=== PATIENT | female | born 1965 ===

== ENCOUNTER 2016-06-11 07:21 | Day surgery (SDC) | payer MEDICARE, BC ==
[2016-01-02 12:29] VITALS: BMI 28.5
[2016-06-11] MEDS ORDERED: Succinylcholine 200 mg/10 ml Inj IV ONE (07:37)
[2016-06-11] MEDS ORDERED: Lidocaine Hydrochloride 5 ML INJ ONE (07:37)
[2016-06-11] MEDS ORDERED: Midazolam 2 MG/2 ML VIAL ONE (07:37)
[2016-06-11] MEDS ORDERED: Neostigmine Methylsulfate 2 MG/2 ML ML IV ONE (07:37)
[2016-06-11] MEDS ORDERED: Propofol 10 mg/ml Inj (20 ML) ONE (07:37)
[2016-06-11] MEDS ORDERED: Rocuronium 10 mg/ml (5 ml) ONE (07:38)
[2016-06-11] MEDS ORDERED: Lidocaine 4% (Laryng-O-Jet) Kit MM ONE (07:50)
[2016-06-11] MEDS ORDERED: Ropivacaine 0.5% 30ML IV ONE (07:51)
[2016-06-11] MEDS ORDERED: Lidocaine 2% w Epi 1:100,000 Inj IJ ONE (08:43)
[2016-06-11] MEDS ORDERED: Sevoflurane - Inhalation Anesthetic Liq (250 ml) ONE (09:00)
[2016-06-11 09:09] LABS: BLOOD UREA NITROGEN 14 mg/dl (7-17); CALCIUM 9.6 mg/dL (8.4-10.2); CARBON DIOXIDE 26 mmol/L (22-30); CHLORIDE 105 mmol/L (98-107); GFR AFRICAN-AMERICAN > 60; GLUCOSE,RANDOM 108 mg/dL (65-105); SODIUM 148 mmol/l (132-148)
[2016-06-11 09:18] LABS: PARTIAL THROMBOPLASTIN TIME 28.7 SECONDS (23.3-32.5)
[2016-06-11] MEDS ORDERED: Lidocaine 2% w Epi 1:200,000 Pf Inj IJ ONE (10:08)
[2016-06-11] MEDS ORDERED: Lactated Ringer's 1,000 ML IV SCH (11:45)
[2016-06-11] MEDS ORDERED: Trimethobenzamide 200 mg/2 mL Inj IM PRN (11:46)
[2016-06-11] MEDS ORDERED: Oxycodone/Acetaminophen 5/325 mg Tab PO PRN (11:47)
--- NOTE | 2016-06-11 11:53 | PCM.ANESB1 ---
Interscalene Block - Brachial Plexus Date of Procedure: 06/11/16 Anesthesiologist: Dr. Hawthorne Pre-Procedure Diagnosis: S/P right shoulder arthroscopy Post-Procedure Diagnosis: S/P right shoulder arthroscopy Procedure Performed: Interscalene Block of Brachial Plexus Right - Procedure Interscalene Block of Brachial Plexus: This procedure was explained to the patient that it is for post-operative pain management. Consent was obtained after a thorough discussion with the patient regarding the benefits and possible complications of local anesthetic block of the Brachial Plexus at the Interscalene area. The patient was brought to the Operating Room and standard monitors were applied. Time out was held with the circulating nurse to confirm the correct surgery and appropriate block. After the surgery while the patient still under general anesthesia, the patient's head was gently rotated away from the right operative shoulder and the anterior scalene groove was carefully palpated. The ultrasound transducer was then applied to the skin in the transverse plane and the brachial plexus was visualized lateral to the carotid artery and in between the anterior and middle scalene muscles. After identification,the anterior lateral portion of the neck was prepped with Chloraprep solution. At this point, a # 22 gauge Stimuplex 2 inches insulated needle was inserted into the interscalene groove and directed in a caudal and midline direction. The needle was inserted lateral to the ultrasound transducer in-plane towards the brachial plexus in a [id number] direction. Needle advancement was performed carefully under direct ultrasound visualization. Nerve stimulator was used and twitched of the affected extremity including the hand brachialis muscles, biceps and the deltoid was obtained at a current of 0.3MA. After repeated negative aspiration, 5cc of 0.5%, ropivacaiane was injected and this was followed with 15cc of 0.5%, ropivacaiane. Under ultrasound guidance the local anesthetics were observed surrounding the roots of the brachial plexus. The needle was removed intact and sterile dressing was applied. The patient had stable vital signs, anesthesia discontinued and patient extubated. She was in no apparent distress. The patient tolerated the interscalene block of the bracheal plexus well with stable vital signs and was transported to PACU.
[2016-06-11 13:50] VITALS: BP 116/75; PULSE 88; RESP 18; TEMP 97.9; O2SAT 96
--- NOTE | 2016-06-13 11:23 | PCM.SURG1 ---
Surgeon's Initial Post Op Note - Surgeon's Notes Surgeon: Dr. Ron Arteaga Tin Tie Machine Operator Automatic: Yoselyn Jones PA-C Type of Anesthesia: General Endo Anesthesia Administered By: Dr. Hawthorne Pre-Operative Diagnosis: Right Shoulder Impingement,Rotator Cuff Tear,Synovitis, Bicep Tenosynovitis Operative Findings: see operative note Post-Operative Diagnosis: same Operation Performed: Right Shoulder Arthroscopy,Complete Synovectomy, Subacromial Decompression and Acromioplasty,Subpectoral Bicep's Tenodesis Specimen/Specimens Removed: none Estimated Blood Loss: EBL {In ML}: 1 Drains Used: No Drains Post-Op Condition: Good Date of Surgery/Procedure: 06/11/16 Time of Surgery/Procedure: 09:00
--- NOTE | 2016-06-13 11:27 | CP.PCM.DIS ---
Provider - Provider Attending physician: Ron Arteaga MD Primary care physician: Fidel Tesfaye MD Time Spent in preparation of Discharge (in minutes): 30 Diagnosis - Discharge Diagnosis (1) Right rotator cuff tear Status: Acute Priority: Medium Hospital Course - Lab Results Lab Results: Most Recent Lab Values PT 10.4 SECONDS (9.6-11.2) 06/11/16 08:25 INR 1.00 (0.92-1.08) 06/11/16 08:25 APTT 28.7 SECONDS (23.3-32.5) 06/11/16 08:25 Sodium 148 mmol/l (132-148) 06/11/16 08:25 Potassium 4.0 MMOL/L (3.6-5.0) 06/11/16 08:25 Chloride 105 mmol/L (98-107) 06/11/16 08:25 Carbon Dioxide 26 mmol/L (22-30) 06/11/16 08:25 Anion Gap 21 (10-20) H 06/11/16 08:25 BUN 14 mg/dl (7-17) 06/11/16 08:25 Creatinine 0.8 mg/dL (0.7-1.2) 06/11/16 08:25 Est GFR ( Amer) > 60 06/11/16 08:25 Est GFR (Non-Af Amer) > 60 06/11/16 08:25 Random Glucose 108 mg/dL (65-105) H 06/11/16 08:25 Calcium 9.6 mg/dL (8.4-10.2) 06/11/16 08:25 Discharge Plan - Follow Up Plan Condition: GOOD Disposition: HOME/ ROUTINE Patient education suggested?: Yes Additional Instructions: Pt s/p right shoulder arthroscopy,small supraspinatos cuff tear seen,complete synovectomy done with subacromial decompression,acromioplasty,subpectorial bicep 's tenodesis,pt had infraclavicular block by anesthesia,stable post op, immobilizer patent,wound C/D/I,NVI,pain controlled with oral pain meds,amb with minimal asst,steven PP,pt given follow up appt date,pain med scripts,wound care instructions and rehab prescription,NWB RUE. Referrals: Fidel Tesfaye MD [Primary Care Provider] -
--- NOTE | 2016-06-17 11:15 | OP ---
PROCEDURE DATE: 06/11/2016 DATE OF OPERATION: ATTENDING PHYSICIAN: Ron Arteaga MD. ASSISTANTS: Yoselyn Jones PA-C. PREOPERATIVE DIAGNOSES 1. Right shoulder partial rotator cuff tear. 2. Synovitis. 3. Impingement. POST- OPERATIVE DIAGNOSES 1. Right shoulder type 2 superior labrum anterior and posterior (SLAP) tear. 2. Partial supraspinatus tear. 3. Posterior superior labral tear. 4. Subacromial bursitis. 5. Subacromial adhesions. 6. Impingement. ANESTHESIA: General and an interscalene block. PROCEDURE 1. Right shoulder extensive debridement. 2. Subacromial decompression with acromioplasty. 3. Removal of subacromial multiple adhesions without manipulation. 4. Mini open subpectoral biceps tenodesis. EBL: 10 mL. SPECIMENS: None. CLOSURE: Primary FLUIDS: See anesthesia sheet ANTIBIOTICS: See anesthesia sheet COMPLICATIONS: None. Indications: After failing a course of non-operative therapy, the patient elected to undergo the above procedures. In the office the risks and possible complications of the shoulder arthroscopy were discussed in detail with the patient. These risks include, but are not limited to: continued pain, lack of motion, infection, vascular injury, and nerve injury including axillary nerve dysfunction, reflex sympathetic dystrophy, compartment syndrome, limb loss, and . The patient expressed an understanding of the risks and possible benefits of the procedure, and was also made aware of the alternatives to surgery. An informed consent was obtained, and was checked immediately pre-op. Procedure 1: The patient was correctly identified in the holding area and the right shoulder was marked with the surgeon's initials. The patient was transported to the operating room and placed in the supine position and general anesthesia and regional interscalene block were obtained. A preoperative orthopedic examination revealed a passive range of motion of 170 degrees of forward elevation, 70 degrees of external rotation, and 150 degrees of abduction. Stability examination revealed: No instability. Procedure 2: The patient was then placed in a beach chair position utilizing the beach chair positioning device. The patient's head was stabilized and the indicated upper extremity was prepped and draped in the standard surgical fashion. The anatomic structures were outlined with a skin marker, and 1% lidocaine with epinephrine was injected into the posterior, anterior, and lateral portal areas. A #21-gauge spinal needle was placed in the glenohumeral joint from the posterior portal and 10 mL of sterile saline was injected into the glenohumeral joint. Return of fluid indicated correct needle placement into the joint. The needle was then withdrawn and a #11 blade was used to make a 1cm incision at the posterior portal site. Next, the arthroscopic blunt trocar was inserted into the glenohumeral joint. A #21-gauge spinal needle was placed through the anterior rotator interval, and the anterior portal was made with a #11 blade after the spinal needle was withdrawn. A 7-mm cannula was then inserted after the skin incision was made and the arthroscopic probe was then used to examine the internal structures of the glenohumeral joint. With the shoulder abducted and externally rotated position, the articular surface of the rotator cuff was visualized. The arthroscope and probe were then switched from posterior to anterior. The posterior labrum, posterior capsule, and biceps anchor reflection was then inspected with the arthroscope in the anterior portal position. Examination of the glenohumeral joint revealed: 1. Type 2 SLAP tear. 2. Biceps tenosynovitis. 3. Partial articular-sided supraspinatus tear. 4. Posterior superior labral tear. Using the probe the labrum was circumferentially assessed for tear. Tears were note at the posterior superior labrum. Using the 4.0 motorized shaver and radiofrequency probe, the torn edges of the labrum were debrided until stable rim, preventing any further propagation. The biceps pathology was addressed with Biceps tenodesis. Upon careful arthroscopic evaluation of biceps tendon and its anchor site at the labrum, it was noted to be highly frayed and tears not amenable to repair Biceps tenotomy was performed using the arthroscopic scissors. Afterwards, a small 2cm incision was marked within the axillary fold and injected with 2 mL of 1% Lidocaine with Epinephrine. Skin incision was made using a 15 blade. Deeper dissection was carried out with scissor, and interval between pectoralis major tendon and coracobrachialis. Biceps tendon was identified sitting within the biceps groove. It was removed from the groove and found to be erythematous with inter- substance fraying and tearing. Torn edges of the tendon were incised using 15 blade and a 2.0 fiber loop was used to whip stitch the tendon. The elbow was taken through flexion and extension to identify the appropriated site of tenodesis within the bicipital groove with proper tensioning of muscle belly. For tenodesis, we used the Arthrex bicortical button. The free ends of fiber loop were loaded onto the metal cortical button. The diameter of the tendon was measured using the guide. Using appropriate drill bit for, bicortical drill hole was made at the top of bicipital groove. Then, using the appropriate size reamer, as determined after measuring the width of biceps tendon, the near cortex was drilled approximately 1.5cm in depth. The cortical button was loaded on the handle and passed through the drilled hole then flipped at the far cortex. The Biceps tendon was delivered into the drill hole and was sutured and secured with fiber loop. Normal saline irrigation was used to remove all the debris and loose bodies. Skin edges were brought closer using 2.0 Vicryl sutures and closed 4.0 Nylon sutures. Examination of the subacromial space revealed: 1. Examination of the subacromial space, extensive bursitis. 2. Multiple subacromial adhesions. 3. Impingement. Visualization of the subacromial space was difficult due to excessive bursitis. A bursectomy was performed using a combination of radiofrequency device as well as a 4.0-mm full radius motorized shaver. The soft tissue on the undersurface of the acromion was debrided utilizing the 4.0 mm full radius shaver and the radiofrequency device was used for hemostasis. At this point, the coracoacromial ligament was released, with the radiofrequency device, and the acromial branch of the thoracoacromial artery was coagulated with the same instrument. Sub-acromial decompression was performed with a 4.0 mm conical anthony using both the medial portal and the "cutting-block" precision acromioplasty technique from the posterior portal. The undersurface of the acromion was resected to a flat, smooth surface to allow unrestricted excursion of the rotator cuff. There were multiples adhesions noted within the sub-acromial space. Adhesions were found within the anterior, posterior and lateral gutter. These adhesions were scared into to anterior and posterior portion of rotator cuff limiting range of motion. Using the 4.0 mm motorized shaver and radiofrequency probe, adhesions were debrided and removed. All the bleeding surfaces were coagulated. Afterwards, the shoulder was taken through range of motion and there was a notable improvement in range of motion and unrestrictive excursion of rotator cuff muscle and tendons. The subacromial space was then irrigated with sterile saline, and closure was instituted with sutures. A dressing was placed consisting of Xeroform, 4 x 4's , ABD pads, and tape. The patient was placed in a sling with an ABD pad in the axilla. Post-operatively, the patient will be maintained in an abduction sling. Also, provided with my rehab protocol, defining the restriction and sling use for 6 weeks. Follow up in 10 days. During this procedure, I was assisted by Yoselyn Jones PA-C, who assisted in positioning the patient on the operating room table as well as transferring the patient from the operating room table to the recovery room stretcher. In addition, Yoselyn Jones PA-C, assisted me during the actual operative procedure by positioning the patient's extremity to allow for easier arthroscopic access to all areas of the joint. The presence of Yoselyn Jones PA-C, as my operative fundraising assistant was medically necessary to ensure the utmost safety of the patient in the pre, intra-, and post-operative periods. Ron Arteaga MD cc: [id number] TT: 06/11/2016 17:05:10 fn [email or web address] A
== END 2016-06-11 14:55 | disposition home or self-care (01) ==
LOC: H.OPSURG 07:21
PROVIDERS: ATTEND Orthopaedic Surgery
DX: M75.111 Incomplete rotator cuff tear or rupture of right shoulder, not specified as traumatic (principal); M24.111 Other articular cartilage disorders, right shoulder; M75.42 Impingement syndrome of left shoulder; J45.909 Unspecified asthma, uncomplicated; I10 Essential (primary) hypertension; E66.9 Obesity, unspecified; F32.9 Major depressive disorder, single episode, unspecified; M65.811 Other synovitis and tenosynovitis, right shoulder; M75.51 Bursitis of right shoulder
CPT/HCPCS: 23020; 23130; 23412; 23430; 36415; 80048; 85610; 85730; C1776; J0171; J0330; J0690; J2250; J2704; J2710; J2765; J3010; J7030; J7120